=== PATIENT | female | born 1970 | race Caucasian/White ===

== ENCOUNTER 2018-09-18 14:05 | Emergency (ER) | payer OTHER ==
[2018-09-18] MEDS ORDERED: NS 0.9% 1000 ML** 1,000 ML IV ONE (14:43)
--- NOTE | 2018-09-18 14:43 | ED ---
GI/ HPI - HPI Summary HPI Summary: A 47 y/o female presents to [facility] with a chief complaint of bilateral flank pain. She says that she thinks that she has a UTI. She was sent from Urgent Care after a negative UA to the ED to rule out kidney stones. The patient claims that she has increased urinary frequency along with dysuria and more of a right sided abdominal pain. At triage she rated her pain as an 8/10 in severity, and in the ED room she rated her pain as a 5/10 in severity. She denies vaginal discharge. SHx of cholecystecomy. Hx of asthma and GERD. FHx of HTN and cardiac disease. No FHx of kidney stones. She reports occasional EtOH use but denies drug use or smoking. - History of Current Complaint Chief Complaint: EDFlankPain Time Seen by Provider: 09/18/18 14:35 Stated Complaint: KIDNEY STONES PER PT Hx Obtained From: Patient Hx Last Menstrual Period: 08/28/18 Onset/Duration: Started Hours Ago, Still Present Timing: Constant, Lasting Hours Severity: Severe Current Severity: Moderate Pain Intensity: 5 - out of 10 Location of Pain: Flank, Other - right sided Pain Characteristics: Unable to describe Associated Signs and Symptoms: Positive: Dysuria, Abdominal Pain. Negative: Fever Additional Signs & Symptoms: Negative: Vaginal Discharge Aggravating Factor(s): Nothing Alleviating Factor(s): Nothing - Allergy/Home Medications Allergies/Adverse Reactions: Allergies Allergy/AdvReac Type Severity Reaction Status Date / Time aspirin Allergy throat Verified 09/18/18 14:10 closes off Sulfa (Sulfonamide Allergy breathing Verified 09/18/18 14:10 Antibiotics) problems and rash PMH/Surg Hx/FS Hx/Imm Hx Respiratory History: Reports: Hx Asthma GI History: Reports: Hx Gastroesophageal Reflux Disease - Surgical History Surgery Procedure, Year, and Place: c[place] Infectious Disease History: No Infectious Disease History: Denies: Traveled Outside the [place] in Last 30 Days - Family History Known Family History: Positive: Cardiac Disease, Hypertension, Other - negative for kidney stones - Social History Alcohol Use: Occasionally Substance Use Type: Reports: None Smoking Status (MU): Never Smoked Tobacco Review of Systems Negative: Fever Positive: Abdominal Pain - right sided Positive: dysuria, frequency - increased, flank pain All Other Systems Reviewed And Are Negative: Yes Physical Exam - Summary Physical Exam Summary: VITAL SIGNS: Reviewed. GENERAL: Patient is a well-developed and nourished female who is lying comfortable in the stretcher. Patient is not in any acute respiratory distress. HEAD AND FACE: Normocephalic and atraumatic. EYES: PERRLA, EOMI x 2, No injected conjunctiva. EARS: Hearing grossly intact. Ear canals and tympanic membranes are WNL. MOUTH: Oropharynx within normal limits. NECK: Supple, trachea is midline, no adenopathy, no JVD. CHEST: Symmetric, no tenderness at palpation. LUNGS: Clear to auscultation bilaterally. No wheezing or crackles. CVS: RRR, S1 and S2 present, no murmurs or gallops appreciated. ABDOMEN: Soft, right sided abdominal tenderness. No signs of distention. Positive bowel sounds. No rebound, no guarding, and no masses palpated. No abdominal bruit or pulsations. EXTREMITIES: FROM in all major joints, no edema, no cyanosis or clubbing. NEURO: Alert and oriented x 3. No acute neurological deficits. Speech is normal. SKIN: Dry and warm. Triage Information Reviewed: Yes Vital Signs On Initial Exam: Initial Vitals Temp Pulse Resp BP Pulse Ox 98.4 F 81 18 136/89 100 09/18/18 14:07 09/18/18 14:07 09/18/18 14:07 09/18/18 14:07 09/18/18 14:07 Vital Signs Reviewed: Yes Diagnostics - Vital Signs Vital Signs Temp Pulse Resp BP Pulse Ox 09/18/18 14:07 98.4 F 81 18 136/89 100 - Laboratory Result Diagrams: 09/18/18 14:51 09/18/18 14:51 Lab Statement: Any lab studies that have been ordered have been reviewed, and results considered in the medical decision making process. - CT abdomen/pelvis CT Interpretation Completed By: Radiologist Summary of CT Findings: 1. No renal calculi or signs of hydronephrosis. 2. There are chronic, degenerative and iatrogenic findings described in the body the. report but none that would be expected to cause the patient's current clinical symptoms. ED physician has reviewed this imaging report. GIGU Course/Dx - Course Assessment/Plan: A 47 y/o female presents to [facility] with a chief complaint of bilateral flank pain. She says that she thinks that she has a UTI. She was sent from Urgent Care after a negative UA to the ED to rule out kidney stones. The patient claims that she has increased urinary frequency along with dysuria and more of a right sided abdominal pain. At triage she rated her pain as an 8/10 in severity, and in the ED room she rated her pain as a 5/10 in severity. She denies vaginal discharge. SHx of cholecystecomy. Hx of asthma and GERD. FHx of HTN and cardiac disease. No FHx of kidney stones. She reports occasional EtOH use but denies drug use or smoking. Blood work without any significant abnormality except for a slight anemia, potassium 3.1 for which the patient was given potassium chloride. Glucose 136 and total protein 6.2. Urinalysis is negative for UTI. Abdominal and pelvic CT IMPRESSION: 1. No renal calculi or signs of hydronephrosis. 2. There are chronic, degenerative and iatrogenic findings described in the body the. report but none that would be expected to cause the patient's current clinical symptoms. I discussed all the findings and test results with the patient. Patient was instructed to return to the emergency room immediately if any of the symptoms return worsens. Plan of care was discussed with the patient and understands and agrees. All questions were answered at patient satisfaction. There were no further complaints or concerns. Lung exam before discharge: CTA B/L. Good air exchange. No wheezing or crackles heard. CVS: S1 and S2 present. No murmurs appreciated. Patient is alert and oriented x 3. Patient is hemodynamically stable. Patient will be discharged home with follow up PCP in the next 2-3 days. - Diagnoses Provider Diagnoses: Flank pain Discharge - Sign-Out/Discharge Documenting (check all that apply): Patient Departure - [place] Patient Received Moderate/Deep Sedation with Procedure: No - Discharge Plan Condition: Stable Disposition: HOME Patient Education Materials: Flank Pain (ED) Referrals: [facility] [Outside] (2-3 days) Additional Instructions: FOLLOW UP WITH YOUR PRIMARY CARE PROVIDER. RETURN TO THE ED FOR ANY WORSENING OR NEW SYMPTOMS. - Billing Disposition and Condition Condition: STABLE Disposition: Home - Attestation Statements Document Initiated by Scribe: Yes Documenting Scribe: Adrian Quintanilla Provider For Whom Scribe is Documenting (Include Credential): Art Ace MD Scribe Attestation: IAdrian, scribed for Art Ace MD on 09/19/18 at 1211. Scribe Documentation Reviewed: Yes Provider Attestation: The documentation as recorded by the scribeAdrian accurately reflects the service I personally performed and the decisions made by me, Art Ace MD Status of Scribe Document: Viewed
[2018-09-18 14:55] LABS: ABS Eosinophils 0.1 10^3/ul (0-0.6); ABS Lymphocytes 2.4 10^3/ul (1.0-4.8); ABS Monocytes 0.9 10^3/ul (0-0.8); ABS Neutrophils 5.9 10^3/ul (1.5-7.7); Eosinophil % 0.7 %; Hematocrit 32 % (35-47); Hemoglobin 10.7 g/dL (12.0-16.0); Lymphocyte % 25.8 %; Mean Corpuscular HGB Conc 33 g/dL (31-36); Mean Corpuscular Hemoglobin 28 pg (27-31); Mean Corpuscular Volume 84 fL (80-97); Mean Platelet Volume 7.3 fL (7.4-10.4); Nucleated Red Blood Cells % 0.1; Platelet Count 340 10^3/uL (150-450); Red Cell Distribution Width 15 % (10-15); White Blood Count 9.3 10^3/uL (3.5-10.8)
[2018-09-18 15:22] LABS: Albumin 3.8 g/dL (3.2-5.2); Albumin/Globulin Ratio 1.6 (1-3); BUN/Creatinine Ratio 15.9 (8-20); C Reactive Protein 7.28 mg/L (<8.01); Calcium 8.7 mg/dL (8.6-10.3); EGFR African American 111.3 (>60); Globulin 2.4 g/dL (2-4); Potassium 3.1 mmol/L (3.5-5.0); Total Bilirubin 0.3 mg/dL (0.2-1.0); Total Protein 6.2 g/dL (6.4-8.9)
[2018-09-18] MEDS ORDERED: Potassium Chlor TAB* 20 MEQ TAB.ER PO ONE (17:04)
[2018-09-18 17:19] VITALS: BP 138/94
[2018-09-18 17:29] LABS: Urine Appearance Cloudy; Urine Bilirubin Negative (Negative); Urine Blood Negative (Negative); Urine Color Straw; Urine Glucose Negative (Negative); Urine Ketones Negative (Negative); Urine Nitrite Negative (Negative); Urine Protein Negative (Negative); Urine Urobilinogen Negative (Negative)
== END 2018-09-18 17:47 | disposition home or self-care (01) ==
LOC: ED 14:05
DX: R10.31 Right lower quadrant pain (principal); R10.32 Left lower quadrant pain; Z88.2 Allergy status to sulfonamides; Z88.8 Allergy status to other drugs, medicaments and biological substances
CPT/HCPCS: 36415; 74176; 80053; 81003; 83605; 83690; 85025; 86140; 96360; 99282; A9270-GY

== ENCOUNTER 2022-06-06 05:42 | Observation (INO) ==
[2022-06-06] MEDS ORDERED: Buffered Lidocaine 1% SYRIN 1 ml INTRADERM ONE (06:00)
[2022-06-06] MEDS ORDERED: Lactated Ringers 1000 ml BAG 1,000 ML IV SCH (06:00)
[2022-06-06] MEDS ORDERED: ceFAZolin 2 GM in NS PREMIX 2 GM/100 ML BAG IVPB ONE (06:07)
[2022-06-06] MEDS ORDERED: ROPIVACAINE 5 MG/ML 30 ML BTL (0.5%) ONE (07:03)
[2022-06-06] MEDS ORDERED: Midazolam 2 mg/2 ml VIAL 1 mg/ml 2 ml VIAL (2 mg) ONE (07:07)
[2022-06-06] MEDS ORDERED: fentaNYL 100 mcg/2 ml 50 MCG/ML VIAL ONE ×2 (07:07→11:10)
[2022-06-06] MEDS ORDERED: Phenylephrine IV 10 MG/ML 1 ml VIAL ONE (07:07)
[2022-06-06] MEDS ORDERED: Lidocaine 2% PF 5 ML VIAL ONE (07:07)
[2022-06-06] MEDS ORDERED: Rocuronium 50 mg VIAL 10 mg/ml 5 ml VIAL (50 mg) ONE (07:11)
[2022-06-06] MEDS ORDERED: Tranexamic Acid 1,000 MG in NS 0.9% 50 ML IV ONE (08:00)
[2022-06-06] MEDS ORDERED: Ondansetron 4 mg VIAL 2 MG/ML 2 ml VIAL IV PRN (08:14)
[2022-06-06] MEDS ORDERED: Lactulose 30 ml UDC PO PRN (08:14)
[2022-06-06] MEDS ORDERED: Ondansetron ODT 4 mg TAB 4 MG TAB PO PRN (08:14)
[2022-06-06] MEDS ORDERED: Morphine 2 MG/ML SYRINGE IV PRN (08:14)
[2022-06-06] MEDS ORDERED: Magnesium Hydroxide LIQ 30 ML UDC PO PRN (08:14)
[2022-06-06] MEDS ORDERED: Propofol 10 MG/ML 20 ML BTL ONE ×4 (08:33→09:35)
[2022-06-06] MEDS ORDERED: Naloxone 0.4 mg VIAL 0.4 mg/ml 1 ml VIAL IV PRN (08:42)
[2022-06-06] MEDS ORDERED: fentaNYL 100 mcg/2 ml 50 MCG/ML VIAL IV PRN (08:42)
[2022-06-06] MEDS ORDERED: HYDROmorphone 1 MG/1 ML SYRINGE IV PRN (08:42)
[2022-06-06] MEDS ORDERED: Albuterol 2.5mg/3 ml (0.083%) NEB.SOLN INH ONE ×2 (11:46→11:47)
[2022-06-06] MEDS ORDERED: Albuterol 0.5% CONC CONTINUOUS NEB.SOL 5 mg/ml 20 ml BOT INH ONE (11:48)
[2022-06-06] MEDS ORDERED: Albuterol HFA INHALER 8 gm MDI INH PRN (11:49)
[2022-06-06] MEDS: Lactated Ringers 1000 ml BAG 1,000 ML IV SCH ×2 (12:51→23:15)
[2022-06-06] MEDS: Magnesium Hydroxide LIQ 30 ML UDC PO SCH ×2 (13:36→21:10)
[2022-06-06] MEDS: Vitamin THERAPEUTIC TAB PO SCH (13:37)
[2022-06-06] MEDS: ceFAZolin 1 GM ADVAN 1 GM in NS 0.9% 50 ML 50 ML IVPB SCH ×2 (16:19→23:50)
[2022-06-06] MEDS: Mometasone/Formoter 200/5 MDI INH SCH (20:18)
[2022-06-07 06:12] LABS: Hematocrit 28 % (35-47); Mean Platelet Volume 8.1 fL (7.4-10.4); Platelet Count 312 10^3/uL (150-450)
[2022-06-07 06:22] LABS: Calcium 8.6 mg/dL (8.6-10.3); Creatinine, Serum 0.69 mg/dL (0.51-0.95); Potassium 4.6 mmol/L (3.5-5.0); eGFR CKD-EPI 106.3 (>60)
[2022-06-07] MEDS: Mometasone/Formoter 200/5 MDI INH SCH (08:25)
[2022-06-07] MEDS: Magnesium Hydroxide LIQ 30 ML UDC PO SCH (09:43)
[2022-06-07] MEDS: Vitamin THERAPEUTIC TAB PO SCH (09:43)
[2022-06-07] MEDS: ceFAZolin 1 GM ADVAN 1 GM in NS 0.9% 50 ML 50 ML IVPB SCH (09:50)
[2022-06-07 12:24] LABS: Hematocrit 27 % (35-47); Hemoglobin 8.9 g/dL (12.0-16.0); Mean Corpuscular HGB Conc 34 g/dL (31-36); Mean Corpuscular Hemoglobin 28 pg (27-31); Mean Corpuscular Volume 84 fL (80-97); Mean Platelet Volume 7.4 fL (7.4-10.4); Platelet Count 314 10^3/uL (150-450); Red Blood Count 3.13 10^6 /uL (3.70-4.87); Red Cell Distribution Width 15 % (10-15); White Blood Count 14.8 10^3/uL (3.5-10.8)
[2022-06-07 12:40] LABS: ABS Basophils 0.1 10^3/ul (0-0.2); ABS Lymphocytes 1.5 10^3/ul (1.0-4.8); ABS Monocytes 1.7 10^3/ul (0-0.8); ABS Neutrophils 11.5 10^3/ul (1.5-7.7); Eosinophil % 0.1 %; Lymphocyte % 10.2 %
[2022-06-07 15:57] VITALS: BP 119/77
== END 2022-06-07 15:40 | disposition home or self-care (01) ==
LOC: SSU 05:42 → SDS 05:42 → EDSTATUS 07:30
PROVIDERS: ADMIT Orthopaedic Surgery Adult Reconstructive Orthopaedic Surgery; ATTEND Orthopaedic Surgery Adult Reconstructive Orthopaedic Surgery